=== PATIENT | female | born 1955 | race Caucasian/White ===

== ENCOUNTER → 2016-07-05 | Outpatient (CLI) | payer OTHER ==
--- NOTE | 2016-07-06 12:27 | MR ---
MRI upper extremity, left shoulder History: Left shoulder pain. Pain with overhead movement. Weakness. No significant improvement with p hysical therapy. Technique: MRI was performed of the left shoulder using a 3 [employer] MRI system. Oblique coronal, obliqu e sagittal, and axial images were obtained with standard imaging sequences. Findings: General: No significant axillary lymphadenopathy. Acromial Clavicular Region: Mild degenerative change in the acromioclavicular joint. Anterior curve t o the acromion. Anterior subacromial spur. Subacromial/subdeltoid fluid collection. Rotator Cuff: Complete tear of the supraspinatus tendon retracted 3 cm. Atrophy of the supraspinatus muscle. Large full-thickness tear involving the majority of the infraspinatus tendon. Attenuated keith ining posterior fibers of the infraspinatus. Teres minor is unremarkable. Abnormal signal intensity a nd attenuation in the distal subscapularis tendon. Biceps tendon: The long head of biceps tendon is not seen intra-articular and is poorly visualized in the bicipital groove. Glenohumeral Joint: Cartilage thinning in the humeral head and glenoid with periarticular spurring. S ubcortical bone marrow edema and cystic change. Diminutive labrum throughout. Mild glenohumeral joint effusion with synovial perforation. Impression: 1. Complete tear of the supraspinatus tendon and large full-thickness tear involving a large portion of the infraspinatus tendon retracted 3 cm with atrophy of the muscle. Humeral head is high riding th rough this tear articulating with acromion. 2. Long head of the biceps tendon is not well visualized and could be chronically torn and retracted. 3. Moderate degenerative change glenohumeral joint with cartilage loss and diminutive labrum througho ut. Mild glenohumeral joint effusion with synovial proliferation. 4. Mild degenerative change acromioclavicular joint. Anterior curve to the acromion. Subacromial spur . 5. Mild tendinopathy and partial tear distal subscapularis tendon.
== END ==
LOC: FIMAGING 15:39
PROVIDERS: ATTEND Orthopaedic Surgery Sports Medicine
DX: M75.122 Complete rotator cuff tear or rupture of left shoulder, not specified as traumatic (principal); M25.512 Pain in left shoulder; R53.1 Weakness; M25.712 Osteophyte, left shoulder; M19.012 Primary osteoarthritis, left shoulder; M77.9 Enthesopathy, unspecified

== ENCOUNTER → 2016-07-27 | Outpatient (CLI) | payer OTHER ==
--- NOTE | 2016-07-27 16:39 | DX ---
Lumbar Spine, Two Views at 1555 hours Indication: Pain. Spinal fusion. Comparison: Two-view lumbar spine dated October 16, 2015 Technique: Upright AP and lateral views. Findings: The posterior fusion construct extending from L3 to L5 is well seated. No perihilar hardwa re fracture or lucency has developed. The construct consists of dual posterior rods and bilateral tra nslaminar screws at L3, L4 and L5. Bone graft and markers in the L3-L4 interbody space remains well s eated. The L5 and S1 levels or osseous fused. 3 mm of retrolisthesis of L2 on L3 and 11 mm of anterol isthesis of L5 on S1 are unchanged. Moderate to severe degenerative disk disease at T11-T12 level is minimally worse. No compression fracture. Impression: 1. Well seated posterior fusion construct extending from L3 to L5. 2. Grade 1 retrolisthesis of L2 on L3 is unchanged. 3. No compression fracture.
== END ==
LOC: FIMAGING 15:42
PROVIDERS: ATTEND Physician Assistant
DX: Z98.1 Arthrodesis status (principal); M43.16 Spondylolisthesis, lumbar region; M54.9 Dorsalgia, unspecified

== ENCOUNTER 2016-08-09 11:59 | Emergency (ER) | payer OTHER ==
[2016-08-09 12:07] VITALS: RESP 16
[2016-08-09] MEDS ORDERED: NS 1,000 ML IV ONE (12:08)
[2016-08-09] MEDS ORDERED: HYDROmorphONE/DILAUDID 1 MG/ML SYR IVP ONE (12:08)
[2016-08-09] MEDS ORDERED: ONDANSETRON 4 MG/2 ML VIAL IVP ONE (12:08)
--- NOTE | 2016-08-09 13:11 | EDPHY ---
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 She says that she noted a sudden onset of pain in the right brachium. This is primarily at the midshaft of the humerus but radiates up and down somewhat. It is also anterolateral. It does involve up to but not including the shoulder joint. It does not involve the elbow. Severe pain. Difficulty moving the arm away from the body. She has no numbness or tingling distal to it. She has no pain of the ipsilateral hand, wrist or elbow. No position of comfort. No other associated complaints or modifying factors. Patient does have an established orthopedist that she would like us to contact findings. REVIEW OF SYSTEMS: Ten systems reviewed and are negative unless otherwise noted in the HPI EXAMINATION General Appearance: Alert, no distress But in obvious pain. Head: normocephalic, atraumatic Eyes: Pupils equal and round, no conjunctival pallor or injection ENT, Mouth: Mucous membranes moist Respiratory: No dyspnea or retractions. No distress Cardiovascular: Pulses normal throughout With symmetric radial pulses at 2+. Brisk cap refill Neurological: A&O, sensory symmetric. Unable to test strength in the right shoulder elbow secondary to pain. Strength and otherwise symmetric. No wrist drop of the right upper extremity. Skin: Warm and dry, no rash Extremities: Significant tender palpation of the right brachium. There is also some tenderness of the right deltoid and distal humerus. No tenderness of the right elbow, wrist or hand. Range of motion of the right hand and wrist are intact. Range of motion of the right elbow was intact. Unable to abduct the shoulder completely secondary to severe pain. Neurovascular intact distal to her pain in the right upper extremity. Psychiatric: Mood and affect normal DIFFERENTIAL DIAGNOSES: Including but not limited to Muscular tear, ligamentous tear, tendinous strain , fracture, dislocation, hematoma, contusion MDM: 12:00 p.m. severe pain of the right brachium, including just below the shoulder joint and down to approximately 2/3 of the distance of the humerus. This is primarily on the lateral posterior aspect. Minimal anterior aspect. She has severe pain with any kind of movement of the shoulder, and also with palpation. She has no numbness or tingling distally. We have ordered an x-ray, IV pain medication MRI of the area of concern. 2:30 p.m. I have re-evaluated the patient. She is feeling much better than before. Still unable to abduct the arm. She has MRI results as listed above. The results were conveyed to Dr. Flannery. Suspect partial involvement of the long head of biceps, as well as subscapularis and infraspinatus tendon injury. She has a chronic supraspinatus injury. I will discuss with her established orthopedist Dr. Snyder. 3:10 p.m. I have discussed the case with Dr. Snyder. He is requesting MRI of the shoulder given the large view of the humerus. I discussed with the patient she is comfortable with this plan. Dr. Snyder informed me that she does not have to stay for the results as he will follow up on the results afternoon and contact her personally discussed. He will also arrange follow up with him for surgical intervention later this week. Patient is comfortable with this plan. She is declining any further pain medication for personal reasons. She does not want any pain prescriptions to go home with, but she is feeling much better at this time. 5:30 p.m. notified by radiologist of the MRI shoulder findings. He notes a complete tear of the distal portion of the subscapularis and the infraspinatus. This is in conjunction with a chronic appearance of a supraspinatus tear. Patient has already been discharged, and Dr. Snyder will follow up with her regarding this MRI and her outpatient care. ED Precautions: Worsening pain. Erythema, edema, cyanosis, pallor, paresthesia or anesthesia. SUPERVISION: This patient was independently evaluated without the aide of supervising physician. (Juan Pringle) Constitutional: Initial Vital Signs Temperature (C) 98.6 F 08/09/16 12:06 Heart Rate 105 H 08/09/16 12:06 Respiratory Rate 16 02/20/17 12:06 Blood Pressure 127/104 H 08/09/16 12:06 O2 Sat (%) 92 08/09/16 12:06 O2 Delivery Mode Room Air Allergies/Adverse Reactions: adhesive tape Allergy (Verified 06/16/15 16:27) Rash Adhesive tape,steristrips Allergy (Intermediate, Uncoded 04/02/15 16:08) Rash Home Medications: Medication Instructions Recorded Bupropion HCl [Wellbutrin Xl] 300 mg PO DAILY 03/27/15 Calcium Carbonate/Vitamin D3 2 each PO DAILY 03/27/15 [Calcium 600 + D Tablet] Estrogen,Con/M-Progest Acet 1 each PO DAILY 03/27/15 [Prempro 0.45-1.5 mg Tablet] Gabapentin [Neurontin] 600 mg PO BID 03/27/15 Herbals/Supplements -Info Only 1 ea PO DAILY 03/27/15 Hydrochlorothiazide [HCTZ (*)] 25 mg PO DAILY 03/27/15 Losartan Potassium [Cozaar 50 mg 50 mg PO DAILY 03/27/15 (*)] Omeprazole [Prilosec] 40 mg PO DAILY 03/27/15 Spironolactone [Aldactone 25 MG 25 mg PO DAILY 03/27/15 (*)] Ondansetron Odt [Zofran Odt 4 mg 4 mg PO Q6 PRN #30 tab 04/20/15 (*)] traMADol [Ultram 50 mg (*)] 50 - 100 mg PO Q6 PRN #90 tab 04/20/15 Acetaminophen [Tylenol 325mg (*)] 325 - 650 mg PO Q4 PRN #0 tab 06/18/15 Aspirin [Aspirin 81mg (*)] 81 mg PO DAILY #10 tab 06/18/15 Medical Decision Making ED Course/Re-evaluation: I did not see this patient while she was in the emergency department. However her care was discussed with the PA while the patient was in the department. I agree with treatment plan and management (Aguilar Yang) - Data Points Medications Given: Discontinued Medications Hydromorphone HCl (Dilaudid) 1 mg IVP EDNOW ONE Stop: 08/09/16 12:09 Last Admin: 08/09/16 12:27 Dose: 1 mg Sodium Chloride (Ns) 1,000 mls @ 0 mls/hr IV ONCE ONE PRN Reason: Wide Open Stop: 08/09/16 12:09 Last Admin: 08/09/16 12:24 Dose: 1,000 mls Ondansetron HCl (Zofran) 4 mg IVP EDNOW ONE Stop: 08/09/16 12:09 Last Admin: 08/09/16 12:24 Dose: 4 mg Departure - Departure Disposition: Home, Routine, Self-Care Clinical Impression: Rotator cuff injury Qualifiers: Encounter type: initial encounter Laterality: right Qualified Code(s): S46.001A - Unspecified injury of muscle(s) and tendon(s) of the rotator cuff of right shoulder, initial encounter Partial tear of right subscapularis tendon Qualifiers: Encounter type: initial encounter Qualified Code(s): S43.81XA - Sprain of other specified parts of right shoulder girdle, initial encounter Tear of right infraspinatus tendon Qualifiers: Encounter type: initial encounter Qualified Code(s): S46.811A - Strain of other muscles, fascia and tendons at shoulder and upper arm level, right arm, initial encounter Condition: Good Instructions: Rotator Cuff Injury (ED) Additional Instructions: Follow up with Dr. Snyder. He will contact me later today to discuss the MRI findings and to establish follow-up timeline Referrals: Patient,NotPresent [Unknown] - As per Instructions Tejinder Snyder MD [Medical Doctor] - As per Instructions
[2016-08-09 15:33] VITALS: BP 126/86; PULSE 77; TEMP 98.1; O2SAT 95
[2016-08-09] MEDS ORDERED: ONDANSETRON DISINTEGRATING 4 MG TAB ONE (16:19)
== END 2016-08-09 16:21 | disposition home or self-care (01) ==
DX: S43.81XA Sprain of other specified parts of right shoulder girdle, initial encounter (principal); S46.001A Unspecified injury of muscle(s) and tendon(s) of the rotator cuff of right shoulder, initial encounter; S46.811A Strain of other muscles, fascia and tendons at shoulder and upper arm level, right arm, initial encounter; I10 Essential (primary) hypertension; Z79.82 Long term (current) use of aspirin; X50.0XXA Overexertion from strenuous movement or load, initial encounter; Y92.69 Other specified industrial and construction area as the place of occurrence of the external cause; Y99.0 Civilian activity done for income or pay; Y93.89 Activity, other specified
CPT/HCPCS: 96374; J1170; J2405

== ENCOUNTER → 2016-10-13 | Outpatient (CLI) | payer OTHER | LOC: FIMAGING 16:02 | PROVIDERS: ATTEND Physician Assistant | DX: M43.16 Spondylolisthesis, lumbar region (principal); M51.36 Other intervertebral disc degeneration, lumbar region; M48.06 Spinal stenosis, lumbar region; M51.24 Other intervertebral disc displacement, thoracic region; M51.34 Other intervertebral disc degeneration, thoracic region ==

== ENCOUNTER → 2016-12-07 | Outpatient (CLI) | payer OTHER | LOC: FIMAGING 15:59 | PROVIDERS: ATTEND Obstetrics & Gynecology Gynecology | DX: Z12.31 Encounter for screening mammogram for malignant neoplasm of breast (principal) | CPT/HCPCS: G0202 ==

== ENCOUNTER → 2017-03-29 | Outpatient (CLI) | payer OTHER | LOC: FIMAGING 13:46 | PROVIDERS: ATTEND Orthopaedic Surgery | DX: M17.0 Bilateral primary osteoarthritis of knee (principal) ==

== ENCOUNTER → 2017-07-14 | Outpatient (CLI) | payer OTHER | LOC: FIMAGING 10:30 | PROVIDERS: ATTEND Orthopaedic Surgery | DX: M17.0 Bilateral primary osteoarthritis of knee (principal) ==

== ENCOUNTER → 2017-07-26 | Outpatient (CLI) | payer OTHER | LOC: FIMAGING 15:19 | PROVIDERS: ATTEND Internal Medicine Rheumatology | DX: Z13.820 Encounter for screening for osteoporosis (principal); M85.80 Other specified disorders of bone density and structure, unspecified site; Z78.0 Asymptomatic menopausal state ==

== ENCOUNTER → 2018-02-03 | Outpatient (CLI) | payer OTHER | LOC: FIMAGING 13:27 | PROVIDERS: ATTEND Obstetrics & Gynecology Gynecology | DX: R92.8 Other abnormal and inconclusive findings on diagnostic imaging of breast (principal); R92.0 Mammographic microcalcification found on diagnostic imaging of breast ==

== ENCOUNTER → 2018-02-27 | Outpatient (CLI) | payer OTHER ==
[~2018-02-27] MED LIST: GADOBUTROL 10 ML VIAL IVP ONE
== END ==
LOC: FIMAGING 12:53
PROVIDERS: ATTEND Physician Assistant Medical
DX: N60.11 Diffuse cystic mastopathy of right breast (principal); N60.12 Diffuse cystic mastopathy of left breast
CPT/HCPCS: 0159T; 77059; A9585; C8908

== ENCOUNTER 2018-04-19 17:20 | Emergency (ER) | payer OTHER ==
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
[2018-04-19] MEDS ORDERED: IBUPROFEN 600 MG TAB PO ONE (18:29)
[2018-04-19] MEDS ORDERED: LIDOCAINE 4%/MENTHOL 1% PATCH TD ONE (18:29)
[2018-04-19] MEDS ORDERED: HYDROCODONE/APAP 5/325 TAB ONE (18:39)
[2018-04-19] MEDS ORDERED: HYDROCODONE/APAP 5/325 TAB PO ONE (18:41)
[2018-04-19] MEDS ORDERED: ONDANSETRON DISINTEGRATING 4 MG TAB ONE (18:42)
[2018-04-19] MEDS ORDERED: ONDANSETRON DISINTEGRATING 4 MG TAB PO ONE (18:43)
[2018-04-19 18:57] VITALS: BP 144/90
[2018-04-19] MEDS ORDERED: PATCH REMOVAL 1 EA PATCH TD SCH (21:00)
== END 2018-04-19 18:57 | disposition home or self-care (01) ==
LOC: EDUNIT#
DX: S22.22XA Fracture of body of sternum, initial encounter for closed fracture (principal); V49.49XA Driver injured in collision with other motor vehicles in traffic accident, initial encounter; Y92.410 Unspecified street and highway as the place of occurrence of the external cause

== ENCOUNTER → 2018-06-05 | Outpatient (CLI) | payer OTHER | LOC: EDSTATUS 16:06 → GIMAGING 17:15 | PROVIDERS: ATTEND Family Medicine | DX: S22.20XD Unspecified fracture of sternum, subsequent encounter for fracture with routine healing (principal); Z79.890 Hormone replacement therapy | CPT/HCPCS: 71120-PO ==

== ENCOUNTER → 2018-08-22 | Outpatient (CLI) | payer OTHER | LOC: FIMAGING 14:47 | PROVIDERS: ATTEND Physician Assistant Medical | DX: R92.8 Other abnormal and inconclusive findings on diagnostic imaging of breast (principal) ==